=== PATIENT | male | born 1985 | race Caucasian/White ===

== ENCOUNTER 2016-10-29 05:58 | Emergency (ER) | payer SELFPAY | END 2016-10-29 06:19 | disposition home or self-care (01) | LOC: ER 05:58 | DX: S20.211A Contusion of right front wall of thorax, initial encounter (principal); F17.200 Nicotine dependence, unspecified, uncomplicated; W19.XXXA Unspecified fall, initial encounter | CPT/HCPCS: 71100-RT; 99284; A9270-GY ==